=== PATIENT | female | born 1960 | race Caucasian/White ===

== ENCOUNTER 2016-03-21 14:09 | Emergency (ER) | payer BC ==
[2016-03-21 14:21] VITALS: TEMP 98.6; BMI 25.2
--- NOTE | 2016-03-21 14:41 | PDOC ---
History of Present Illness - General History Source: Patient Exam Limitations: No Limitations - History of Present Illness Initial Comments: 03/21/16 15:09 The patient is a 55 year old female with no significant past medical history who presents to the emergency department with chest pain and vomiting that started this morning. The patient states that she was woken up from sleep around 4:30am with chest pain, diaphoresis, and weakness. She described the pain as an elephant on her chest with associated pain in her left shoulder and neck. The patient states that her chest pain resolved in severity but it is still persistent and now localized to the left shoulder/neck. The patient reports multiple episodes of vomiting and diarrhea that started this morning as well, nonbloody and nonbilious. The patient denies any associated shortness of breath or palpitations. The patient denies any recent travels or recent antibiotic use. The patient denies recent illness, fevers, or chills. 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 The patient states she had a stress test about 6 years ago that was normal. <Marlin Pearce - Last Filed: 03/21/16 15:09> <Fernandez Lunsford - Last Filed: 03/21/16 16:35> - General Chief Complaint: Chest Pain Stated Complaint: CHEST DISCOMFORT Time Seen by Provider: 03/21/16 14:38 Past History <Marlin Pearce - Last Filed: 03/21/16 15:09> - Past Medical History Other medical history: NONE - Psycho/Social/Smoking Cessation Hx Anxiety: No Suicidal Ideation: No Smoking History: Never smoked Have you smoked in the past 12 months: No Hx Alcohol Use: No Drug/Substance Use Hx: No Substance Use Type: None <Fernandez Lunsford - Last Filed: 03/21/16 16:35> - Past Medical History Allergies/Adverse Reactions: Allergies Allergy/AdvReac Type Severity Reaction Status Date / Time No Known Allergies Allergy Verified 03/21/16 14:21 Home Medications: Ambulatory Orders NK [No Known Home Medication] 03/21/16 Review of Systems - Review of Systems Constitutional: No: Chills, Fever Respiratory: No: Cough, Shortness of Breath Cardiac (ROS): Yes: Chest Pain. No: Edema, Syncope ABD/GI: Yes: Diarrhea, Vomiting : No: Dysuria All Other Systems: Reviewed and Negative <Fernandez Lunsford - Last Filed: 03/21/16 16:35> *Physical Exam - Vital Signs Last Vital Signs Temp Pulse Resp BP Pulse Ox 98.6 F 101 H 20 109/85 98 03/21/16 14:18 03/21/16 14:18 03/21/16 14:18 03/21/16 14:18 03/21/16 14:18 - Physical Exam Comments: 03/21/16 15:09 GENERAL: The patient is awake, alert, and fully oriented, in no acute distress. HEAD: Normal with no signs of trauma. EYES: Pupils equal, round and reactive to light, extraocular movements intact, sclera anicteric, conjunctiva clear with no pallor. ENT: Ears normal, nares patent, oropharynx clear without exudates. Moist mucous membranes. NECK: Normal range of motion, supple without lymphadenopathy, JVD, or masses. LUNGS: Breath sounds equal, clear to auscultation bilaterally. No wheeze/ crackles. HEART: Regular rate and rhythm, normal S1 and S2 without murmur or rub. ABDOMEN: Soft/nontender/nondistended. BS wnl. No guarding or rebound. No palpable masses. No hepatosplenomegaly. EXTREMITIES: Normal range of motion, no edema. No clubbing or cyanosis. No cords, erythema, or tenderness. NEUROLOGICAL: Cranial nerves II through XII grossly intact. Normal speech, normal gait. PSYCH: Normal mood, normal affect. SKIN: Warm, Dry, normal turgor, no rashes or lesions noted. <Marlin Pearce - Last Filed: 03/21/16 15:09> - Vital Signs Last Vital Signs Temp Pulse Resp BP Pulse Ox 98.6 F 101 H 20 109/85 98 03/21/16 14:18 03/21/16 14:18 03/21/16 14:18 03/21/16 14:18 03/21/16 14:18 <Fernandez Lunsford - Last Filed: 03/21/16 16:35> Heart Score/ECG Review - History History: Slightly suspicious - Electrocardiogram EKG: Normal - Age Age: 45-65 - Risk Factors Based on the list above the patient has:: No risk factors known - Troponin Troponin: </= normal limit - Score Heart Score - Total: 1 #1 ECG reviewed & interpreted by me at: 15:31 General ECG Interpretation: Sinus Rhythm, Normal Rate (81), Normal Intervals ( qtc 415), No acute ischemic changes <Fernandez Lunsford - Last Filed: 03/21/16 16:35> ED Treatment Course - LABORATORY CBC & Chemistry Diagram: 03/21/16 15:05 03/21/16 15:05 <Fernandez Lunsford - Last Filed: 03/21/16 16:35> Medical Decision Making - Medical Decision Making 03/21/16 14:57 A portion of this note was documented by scribe services under my direction. I have reviewed the details of the note, within reason, and agree with the documentation with the following case summary and management plan written by me. Healthy 55-year-old female with no severe past medical history presents with chest pain and vomiting/diarrhea since 4 AM. Patient was in her usual state of normal health, awoke with chest pain that she describes as elephant on her chest with nausea and diaphoresis, subsequently went on to have several episodes of vomiting and diarrhea with improvement of her chest pain severity but reports it is still persistent, now more localized to the left shoulder. The pain is non-positional, nonexertional, she has unlimited exercise tolerance at baseline. She denies any shortness of breath or palpitations with the symptoms, positive sick contacts at home with gastroenteritis, she has no PE risk factors. Vital signs normal, exam is normal 55-year-old female presents with overall atypical chest pain in her sleep at 4 AM, also with gastroenteritis type symptoms since then. The nature of the pain itself in its description is somewhat concerning, but the context is very atypical. She has no risk factors for ACS, she has no risk factors for PE. Her heart score is likely to be 1, rules out for PE with [facility]. check labs including trop x2. given atypical nature and low risk, episode 11h prior, these trops should be reassuring. cxr, ekg anti-emetic, pepcid reassess/dispo 03/21/16 16:34 Labs are within normal limits, no leukocytosis, troponin and lipase are normal, chest x-ray is clear. Will plan for second troponin as outlined. Patient was signed out to the oncoming ED physician to reassess the patient, follow up results, and dispo accordingly. <Fernandez Lunsford - Last Filed: 03/21/16 16:35> *DC/Admit/Observation/Transfer - Attestations Scribe Attestion: 03/21/16 14:52 Documentation prepared by Marlin Pearce, acting as nurses medical assistants phlebotomists for Fernandez Lunsford MD. <Marlin Pearce - Last Filed: 03/21/16 15:09> <Fernandze Lunsford - Last Filed: 03/21/16 16:35> Diagnosis at time of Disposition: Atypical chest pain, Nausea vomiting and diarrhea - Referrals Referrals: Judi Paz [Primary Care Provider] -
[2016-03-21] MEDS ORDERED: ONDANSETRON 4 MG/2 ML VIAL IVPUSH ONE (14:55)
[2016-03-21] MEDS ORDERED: FAMOTIDINE 20 MG/50 ML IVPB 50 ML IVPB ONE (14:56)
[2016-03-21 15:34] LABS: BASOPHIL 0.5 % (0-2.0); EOSINOPHIL 0.1 % (0-4.5); MCHC 32.1 g/dl (32.0-36.0); MEAN CELL VOLUME 87.1 fl (80-96); MEAN PLT VOLUME 9.7 fl (7.5-11.1); NEUTROPHILS 91.6 % (42.8-82.8); PLATELET COUNT 226 K/MM3 (134-434); WHITE BLOOD COUNT 6.8 K/mm3 (4.0-10.0)
[2016-03-21 15:47] LABS: INR 1.06 (0.82-1.09); PROTHROMBIN TIME (PATIENT) 11.7 SEC (9.98-11.88)
[2016-03-21 18:56] VITALS: BP 116/79; PULSE 87
[2016-03-21 19:39] LABS: ALBUMIN 3.7 g/dl (3.4-5.0); ANION GAP 6 (8-16); BILIRUBIN,TOTAL 1.1 mg/dL (0.2-1.0); CALCIUM 8.5 mg/dL (8.5-10.1); CO2 29 mmol/L (21-32); CREATININE 0.8 mg/dL (0.55-1.02); GLUCOSE,RANDOM 102 mg/dL (74-106); MAGNESIUM 1.9 mg/dL (1.8-2.4); SGOT/AST 29 U/L (15-37); SGPT/ALT 41 U/L (12-78); TOT PROT 8.2 g/dl (6.4-8.2)
[2016-03-21 19:42] LABS: ALK PHOS 62 U/L (45-117); TROPONIN I < 0.02 ng/ml (0.00-0.05)
--- NOTE | 2016-03-21 20:08 | PDOC ---
*Physical Exam - Vital Signs Last Vital Signs Temp Pulse Resp BP Pulse Ox 98.6 F 87 17 116/79 97 03/21/16 14:18 03/21/16 18:18 03/21/16 18:18 03/21/16 18:18 03/21/16 18:18 ED Treatment Course - LABORATORY CBC & Chemistry Diagram: 03/21/16 15:05 03/21/16 18:41 - ADDITIONAL ORDERS Additional order review: Laboratory Results 03/21/16 03/21/16 03/21/16 18:41 18:08 15:05 INR Sodium 138 Potassium 4.3 Chloride 103 Carbon Dioxide 29 Anion Gap 6 L BUN 16 Creatinine 0.8 D Creat Clearance w eGFR > 60 Random Glucose 102 Calcium 8.5 Magnesium 1.9 Total Bilirubin 1.1 H D AST 29 D ALT 41 D Alkaline Phosphatase 62 Creatine Kinase 82 Cancelled Troponin I < 0.02 Cancelled Total Protein 8.2 Albumin 3.7 Lipase Cancelled 03/21/16 03/21/16 15:05 15:05 INR 1.06 Sodium Cancelled Potassium Cancelled Chloride Cancelled Carbon Dioxide Cancelled Anion Gap Cancelled BUN Cancelled Creatinine Cancelled Creat Clearance w eGFR Cancelled Random Glucose Cancelled Calcium Cancelled Magnesium Cancelled Total Bilirubin Cancelled AST Cancelled ALT Cancelled Alkaline Phosphatase Cancelled Creatine Kinase Cancelled Troponin I Cancelled Total Protein Cancelled Albumin Cancelled Lipase 03/21/16 15:05 RBC 4.92 MCV 87.1 MCHC 32.1 RDW 14.0 MPV 9.7 Neutrophils % 91.6 H D Lymphocytes % 5.3 L D Monocytes % 2.5 L Eosinophils % 0.1 D Basophils % 0.5 - Medications Given in the ED: ED Medications Discontinued Medications Generic Name Dose Route Start Last Admin Trade Name Freq PRN Reason Stop Dose Admin Famotidine/Sodium Chloride 50 mls @ 100 mls/hr 03/21/16 14:56 03/21/16 15:18 Pepcid 20 Mg Premixed Ivpb - IVPB 03/21/16 15:25 Not Given ONCE ONE Ondansetron HCl 4 mg 03/21/16 14:55 03/21/16 15:18 Zofran Injection IVPUSH 03/21/16 14:56 Not Given ONCE ONE Medical Decision Making - Medical Decision Making 03/21/16 20:05 Sign-out received from outgoing Emergency Physician Dr. Lunsford Pt interviewed and examined Ancillary studies reviewed Case discussed in detail with oncoming Emergency Physician including history, physical exam and ancillary studies. CBC, BMP 03/21/16 15:05 03/21/16 18:41 CMP Sodium 138 mmol/L (136-145) 03/21/16 18:41 Potassium 4.3 mmol/L (3.5-5.1) 03/21/16 18:41 Chloride 103 mmol/L (98-107) 03/21/16 18:41 Carbon Dioxide 29 mmol/L (21-32) 03/21/16 18:41 Anion Gap 6 (8-16) L 03/21/16 18:41 BUN 16 mg/dL (7-18) 03/21/16 18:41 Creatinine 0.8 mg/dL (0.55-1.02) D 03/21/16 18:41 Creat Clearance w eGFR > 60 (>60) 03/21/16 18:41 Random Glucose 102 mg/dL (74-106) 03/21/16 18:41 Calcium 8.5 mg/dL (8.5-10.1) 03/21/16 18:41 Magnesium 1.9 mg/dL (1.8-2.4) 03/21/16 18:41 Total Bilirubin 1.1 mg/dL (0.2-1.0) H D 03/21/16 18:41 AST 29 U/L (15-37) D 03/21/16 18:41 ALT 41 U/L (12-78) D 03/21/16 18:41 Alkaline Phosphatase 62 U/L (45-117) 03/21/16 18:41 Creatine Kinase 82 IU/L (26-192) 03/21/16 18:41 Troponin I < 0.02 ng/ml (0.00-0.05) 03/21/16 18:41 Total Protein 8.2 g/dl (6.4-8.2) 03/21/16 18:41 Albumin 3.7 g/dl (3.4-5.0) 03/21/16 18:41 Lipase Cancelled 03/21/16 15:05 Initial troponin hemolyzed. However the 6 pm troponin is negative. The patient is feeling much better and would like to go home. I discussed the physical exam findings, ancillary test results and final diagnoses with the patient. I answered all of the patient's questions. The patient was satisfied with the care received and felt comfortable with the discharge plan and treatment plan. The patient will call their primary care physician within 24 hours to arrange follow-up and will return to the Emergency Department with any new, persistant or worsening symptoms. *DC/Admit/Observation/Transfer Diagnosis at time of Disposition: Atypical chest pain, Nausea vomiting and diarrhea - Discharge Dispostion Disposition: HOME Condition at time of disposition: Improved Admit: No - Referrals Referrals: Judi Paz [Primary Care Provider] - - Patient Instructions Printed Discharge Instructions: DI for Atypical Chest Pain, DI for Vomiting -- Adult Additional Instructions: Your results are unremarkable. Drink plenty of fluids and rest. Follow up with your doctor. - Post Discharge Activity
--- NOTE | 2016-03-22 16:31 | EKG ---
Test Reason : Blood Pressure : / mmHG Vent. Rate : 081 BPM Atrial Rate : 081 BPM P-R Int : 156 ms QRS Dur : 084 ms QT Int : 358 ms P-R-T Axes : 063 057 033 degrees QTc Int : 415 ms NORMAL SINUS RHYTHM NORMAL ECG NO PREVIOUS ECGS AVAILABLE Confirmed by BEN PROCTOR MD ([id number]) on 03/22/2016 4:30:51 PM Referred By: Confirmed By:BEN PROCTOR MD
== END 2016-03-21 20:13 | disposition home or self-care (01) ==
LOC: JER 14:09
DX: R07.89 Other chest pain (principal); R11.2 Nausea with vomiting, unspecified; R19.7 Diarrhea, unspecified
CPT/HCPCS: 36415; 71020-TC; 80053; 82550; 83735; 84484; 85025; 85610; 93005; 93010; 99284-25